=== PATIENT | female | born 1975 | race Caucasian/White ===

== ENCOUNTER 2017-08-02 00:55 | Emergency (ER) | payer OTHER ==
[~2017-08-02] VITALS: Ht 160 cm; Wt 61.2 kg
[~2017-08-02 00:55] MED LIST: AMOX500T PO; ESOM20CA PO; ESOM40CA PO; ONDA2VIA3 IV; POTA40LI3 PO; PROP10TA PO; SPIR25TA PO; SPIR50TA2 PO
[2017-08-02] MEDS ORDERED: LIDOCAINE 2% VIAL ONE (01:03)
--- NOTE | 2017-08-02 01:10 | NUR ---
LACERATION APPROX 3CM IN LENTH, VERY MINIMAL BLEEDING. EDP AT BEDSIDE SUTURING PATIENT
--- NOTE | 2017-08-02 01:10 | NUR ---
EMS IV INFILTRATED, IV DC'D, TIP INTACT, NO BLEEDING
[2017-08-02] MEDS ORDERED: TRIPLE ANTIBIOTIC OINTMENT TP ONE (01:34)
[2017-08-02 01:48] LABS: BASOPHIL # 0.1 10^3/uL (0.0-0.1); BASOPHIL % 2.1 % (0.0-0.2); EOSINOPHIL # 0.6 10^3/uL (0.0-0.2); EOSINOPHIL % 11.3 % (0.0-5.0); HEMOGLOBIN 8.6 g/dL (12.0-15.0); LYMPHOCYTES # 0.8 10^3/uL (1.0-4.8); LYMPHOCYTES % 15.2 % (24.0-44.0); MEAN CELL HGB 27.2 pg (26-34); MEAN CORP VOLUME 87.7 fL (78-100); MEAN PLATELET VOLUME 9.8 fL (7.8-11.0); MONOCYTES # 0.8 10^3/uL (0.3-0.8); MONOCYTES % 14.8 % (5.0-12.0); NEUTROPHIL # 2.9 10^3/uL (1.8-7.7); RED CELL DISTRIBUTION WIDTH 17.5 % (11.5-14.5); WHITE BLOOD CELL 5.2 10^3/uL (4.5-11.0)
--- NOTE | 2017-08-02 02:05 | NUR ---
LACERATION NEOSPORIN APPLIED WITH BANDAGE
--- NOTE | 2017-08-02 02:15 | ER.PDOC ---
General Chief Complaint: Trauma Stated Complaint: WRIST LACERATION Time seen by MD: 02:08 Source: patient, EMS History of Present Illness Initial Comments pt sustained a laceration to the left wrist near the radial artery. Occurred: just prior to arrival Where: home Severity: moderate Context: laceration Location of Injury: (L) wrist Allergies: Coded Allergies: Latex, Natural Rubber (Verified Allergy, Severe, RASH, 08/27/13) Home Meds Active Scripts Amoxicillin (AMOXICILLIN) 500 Mg Tablet, 500 MG PO Q6HR Y for sinusitis for 7 Days, #28 TABLET Prov:NAYAN REYNA MD 07/11/17 Ondansetron Hcl (ZOFRAN) 4 Mg/2 Ml Vial, 4 MG IV Q4H Y for NAUSEA / VOMITING for 10 Days, VIAL Prov:TANA THURMAN III DO 01/04/15 Reported Medications Esomeprazole Magnesium (NEXIUM) 40 Mg Capsule.dr, 40 MG PO DAILY 01/04/15 Propranolol Hcl (PROPRANOLOL HCL) 10 Mg Tablet, 10 MG PO DAILY, TABLET 01/04/15 Spironolactone 25MG (ALDACTONE 25MG) 25 Mg Tablet, 25 MG PO BID, TAB 01/04/15 Esomeprazole Magnesium (NEXIUM) 20 Mg Capsule.dr, 20 MG PO DAILY 08/27/13 Potassium Chloride (POTASSIUM CHLORIDE) 40 Meq/15 Ml Liquid, 50 MEQ PO DAILY 08/27/13 Spironolactone (SPIRONOLACTONE) 50 Mg Tablet, 50 MG PO DAILY 08/27/13 Past Medical History Medical History: other (cirrhosis) Surgical History: , hysterectomy, other (variceal banding) Family History Significant Family History: no pertinent family hx Social History Smoking: cigarettes, less than 1 pack/day Alcohol Use: occassionally Reviewed Nursing Reviewed: Vital Signs, Abn. Noted, Nursing Assessment Review of Systems Constitutional: no symptoms reported EENTM: no symptoms reported Respiratory: no symptoms reported Cardiovascular: no symptoms reported Gastrointestinal: no symptoms reported Musculoskeletal: see HPI, other (laceration ) Skin: no symptoms reported All Other Systems: Reviewed and Negative Physical Exam General Appearance: Moderate Distress Wrist: tenderness Neuro: sensation nml, motor nml Vascular: no vascular compromise (asya test positive) Tendons: tendon function nml Forearm/Elbow/Arm: uninjured above wrist Resp/CVS: no resp distress, lungs clear Laceration/Wound Repair Laceration/Wound Repair : Wound Length (cm): 3 Wound cleaned: betadine Distal NVT: neuro intact, vasc intact (doppler reveals good pulse above and below the incision and on the ulnar side) Anesthesia type: local Anesthesia: 1% Lidocaine Volume Anesthetic (ccs): 4 Wound's Depth, Shape: into muscle Wound Explored: clean Tendon Intact: Yes Wound Repaired With: sutures Suture Size/Type: 3:0, ethilon Suture Style: interupted Number of Sutures: 8 Layer Closure?: Yes Deep Layer Suture Size/Type: 4:0 Number Deep Layer Sutures: 2 Retention sutures placed: No Results/Orders Results/Orders Laboratory Tests Test 08/02/17 01:40 White Blood Count 5.2 10^3/uL (4.5-11.0) Red Blood Count 3.16 10^6/uL (4.00-5.20) Hemoglobin 8.6 g/dL (12.0-15.0) Hematocrit 27.7 % (36.0-46.0) Mean Corpuscular Volume 87.7 fL (78-100) Mean Corpuscular Hemoglobin 27.2 pg (26-34) Mean Corpuscular Hemoglobin Concent 31.0 g/dL (33-37) Red Cell Distribution Width 17.5 % (11.5-14.5) Platelet Count 242 10^3/uL (150-400) Mean Platelet Volume 9.8 fL (7.8-11.0) Neutrophils (%) (Auto) 56.0 % (41.0-85.0) Lymphocytes (%) (Auto) 15.2 % (24.0-44.0) Monocytes (%) (Auto) 14.8 % (5.0-12.0) Neutrophils # (Auto) 2.9 10^3/uL (1.8-7.7) Lymphocytes # (Auto) 0.8 10^3/uL (1.0-4.8) Monocytes # (Auto) 0.8 10^3/uL (0.3-0.8) Absolute Immature Granulocyte (auto 0.03 10^3 u/L (0-2) Eosinophils % 11.3 % (0.0-5.0) Basophils % 2.1 % (0.0-0.2) Basophils # 0.1 10^3/uL (0.0-0.1) Eosinophil Count 0.6 10^3/uL (0.0-0.2) Prothrombin Time 13.9 SEC (9.8-11.9) Prothrombin Time INR (Non-Therap) 1.3 Activated Partial Thromboplast Time 24.7 SEC (24.67-30.72) Percent Immature Gran (Cell Imm) 0.60 % (0.00-0.50) Progress Progress discussed wound care and cessation of alcohol use Departure Time of Disposition: 02:21 Disposition: 01 HOME, SELF-CARE Impression: Primary Impression: Laceration of left wrist without complication Qualified Codes: S61.512A - Laceration without foreign body of left wrist, initial encounter Additional Impression: Cirrhosis of liver Condition: Improved Referrals: PCP,UNKNOWN (PCP) PRIMARY CARE PROVIDER NAYAN REYNA MD Aug 02, 2017 02:15
[2017-08-02 02:37] VITALS: BP 126/72
== END 2017-08-02 02:36 | disposition home or self-care (01) ==
LOC: ER 00:55 → EDBD 00:55 → ER 02:36
DX: S61.512A Laceration without foreign body of left wrist, initial encounter (principal); K74.60 Unspecified cirrhosis of liver; F17.210 Nicotine dependence, cigarettes, uncomplicated; Z91.040 Latex allergy status; Z79.899 Other long term (current) drug therapy; X58.XXXA Exposure to other specified factors, initial encounter; Y93.89 Activity, other specified; Y92.009 Unspecified place in unspecified non-institutional (private) residence as the place of occurrence of the external cause; Y99.8 Other external cause status
CPT/HCPCS: 12032; 36415; 85025; 85610; 99285; J2001